=== PATIENT | male | born 1995 | race Caucasian/White ===

== ENCOUNTER 2019-03-29 11:20 | Emergency (ER) | payer MEDICAID ==
[~2019-03-29] VITALS: Ht 182.9 cm; Wt 95.0 kg
[2019-03-29] MEDS ORDERED: IBUPROFEN 600MG TABLET PO ONE (12:00)
[2019-03-29 12:07] VITALS: BP 120/81
== END 2019-03-29 15:01 | disposition home or self-care (01) ==
LOC: ER 11:20
DX: M25.561 Pain in right knee (principal); M54.2 Cervicalgia
CPT/HCPCS: 73562; 99284